=== PATIENT | female | born 1975 | race Caucasian/White ===

== ENCOUNTER 2024-11-01 20:28 | Emergency (ER) | payer OTHER, SELFPAY ==
[2024-11-01 20:32] VITALS: BP 141/74; PULSE 115; RESP 20; TEMP 36.7; O2SAT 100
[2024-11-01] MEDS: LORazepam (*CRX) 0.5 MG TABLET PO (23:06)
--- NOTE | 2024-11-01 23:50 | ED.ANXIETY ---
HPI - Anxiety General Chief Complaint: Anxiety Stated Complaint: numbness all over body Time Seen by Provider: 11/01/24 22:12 Source: patient Mode of arrival: ambulatory Limitations: no limitations History of Present Illness HPI narrative: Patient is a 48-year-old female who presents the ED with report of paresthesias in her bilateral upper extremities. Patient reports having intermittent pain in her right shoulder for the past 1 year. Reports over the past year, she has had intermittent paresthesias in her bilateral upper extremities. Reports symptoms were worse today. Reports pain throughout bilateral arms. Denies weakness. Denies neck or back pain. Reports anxiety about her symptoms, which makes her symptoms worse. Related Data Allergies Allergy/AdvReac Type Severity Reaction Status Date / Time No Known Allergies Allergy Verified 11/01/24 20:34 Review of Systems Review of Systems: All systems reviewed & are unremarkable except as noted in HPI. All systems reviewed & are unremarkable except as noted in HPI and below Exam Narrative: GENERAL: Somewhat intoxicated appearing, very fidgety, restless movements, well-nourished, non-toxic, in no acute distress. HEAD: Normocephalic, atraumatic. RESPIRATORY: Airway patent, respirations nonlabored. Clear to auscultation bilaterally, no rales, rhonchi, wheezing. CARDIOVASCULAR: Regular rate and rhythm without murmurs, rubs, or gallops. Radial pulses strong and easily palpable MUSCULOSKELETAL: Moves all extremities. No gross deformities. Sensation intact throughout bilateral upper extremities. Diffuse tenderness with any palpation throughout bilateral upper extremities. No appreciable tenderness throughout right shoulder joint, cervical spine, thoracic spine. SKIN: Warm, dry, normal color. NEURO: A&O X3. Speech clear. Cranial nerves II-XII grossly intact. Steady gait. No ataxic movements. PSYCHIATRIC: Manic affect, rapid/pressured speech. Course Vital Signs Vital signs: Vital Signs Temperature 98.0 F 11/01/24 20:32 Pulse Rate 115 H 11/01/24 20:32 Respiratory Rate 20 11/01/24 20:32 Blood Pressure 141/74 H 11/01/24 20:32 Pulse Oximetry 100 11/01/24 20:32 Oxygen Delivery Room Air 11/01/24 20:32 Temperature 98.0 F 11/01/24 20:32 Pulse Rate 97 11/01/24 23:59 Respiratory Rate 18 11/01/24 23:59 Blood Pressure 136/78 11/01/24 23:59 Pulse Oximetry 99 11/01/24 23:59 Oxygen Delivery Room Air 11/01/24 20:32 MDM - Anxiety MDM Narrative Medical decision making narrative: Patient presented to ED with intermittent paresthesias of bilateral upper extremities for the past 1 year, pain in right shoulder for 1 year, pain in bilateral upper extremities currently with anxiety. Patient initially tachycardic upon arrival to the ED. This was improved by the time of my evaluation. She is neurologically intact upon my exam. No focal deficits. Sensation intact. No weakness of extremities. Patient very fidgety, moving constantly, very restless, rapid/pressured speech, suspicious for drug use. Suspicious for anxiety/hyperventilation causing paresthesias. Patient was given dose of oral Ativan and did feel improved on re-evaluation. Discussed possibility of carpal tunnel syndrome, as well as possibility of radiculopathy from neck/shoulder. Patient does not have any acute neck/shoulder tenderness or pain currently to suggest need for further imaging at this time. Advised patient have close follow-up with PCP for further evaluation. Will also refer to Orthopedics. Discussed rice therapy. Given return precautions. She agrees with plan. Feels comfortable going home. Discharged in stable condition. Medical Records Attestation: I reviewed the patient's medical records. Discharge Plan Discharge Clinical Impression: Paresthesia of upper extremity, Chronic pain in left shoulder, Acute anxiety Patient Disposition: Home Condition: Stable Instructions: Antibiotic Form, Shoulder Sprain (ED), Paresthesia (ED), Anxiety (ED) Additional Instructions: Recommend close follow-up with your primary care doctor and/or orthopedics for further evaluation. You may continue Tylenol/ibuprofen as needed for pain, sling for comfort and support. Return to the ED for new or worsening concerns. Patient Language: Citizen Of [place] Follow-up/Referrals: Derek Bentley MD [Physician, Orthopedics] Referral Note: ORTHOPEDICS UNKNOWN,DOCTOR [Primary Care Provider] Elana Moctezuma DO [Physician, Family Practice] Referral Note: PRIMARY CARE Time of Disposition: 23:52
[2024-11-01 23:59] VITALS: BP 136/78; PULSE 97; RESP 18; O2SAT 99
== END 2024-11-02 | disposition home or self-care (01) ==
PROVIDERS: Emergency Provider Physician Assistant
DX: R20.2 Paresthesia of skin (principal); M25.512 Pain in left shoulder; F41.9 Anxiety disorder, unspecified
CPT/HCPCS: 99283; A4565; A9270